=== PATIENT | male | born 1950 | race African-American/Black ===

== ENCOUNTER 2019-04-20 09:41 | Outpatient (CLI) | payer MEDICARE ==
--- NOTE | 2019-04-20 12:41 | RAD ---
4 VIEWS RIGHT KNEE: Date: 04/20/19 COMPARISON: None. HISTORY: Right knee arthralgia/pain. FINDINGS: 4 views of the right knee show no evidence of acute fracture or dislocation. No degenerative changes are seen. No soft tissue swelling is present. IMPRESSION: Unremarkable exam. POS: KP
== END 2019-04-20 09:42 | disposition home or self-care (01) ==
LOC: RAD 09:41
PROVIDERS: ATTEND Family Medicine
DX: M25.561 Pain in right knee (principal)

== ENCOUNTER 2022-05-20 09:30 | Outpatient (CLI) | payer MEDICARE | END 2022-05-20 09:31 | disposition home or self-care (01) | LOC: PET 09:30 | PROVIDERS: ATTEND Nurse Practitioner Family | DX: R91.1 Solitary pulmonary nodule (principal) | CPT/HCPCS: 78815; A9552 ==